=== PATIENT | male | born 1985 | race American Indian/Alaskan Native ===

== ENCOUNTER 2022-03-07 15:06 | Emergency (ER) | payer SELFPAY ==
[2022-03-07] MEDS ORDERED: IBUPROFEN 800 MG TAB PO ONE (19:03)
[2022-03-07] MEDS ORDERED: HYDROcodone/ACETAMINOPHEN 5-325 MG TAB PO ONE (19:03)
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
--- NOTE | 2022-03-07 21:45 | XRay Report ---
RIGHT HIP 1 VIEW(S) INDICATION / CLINICAL INFORMATION: pain hip pain COMPARISON: None available. FINDINGS: BONES / JOINT(S): No acute displaced fracture or subluxation. No significant arthritis. SOFT TISSUES: No significant abnormality. ADDITIONAL FINDINGS: None. Signer Name: Solomon Olvera MD Signed: 03/07/2022 9:41 PM Workstation Name: [id number]
--- NOTE | 2022-03-07 21:47 | XRay Report ---
X-RAY SPINE LUMBOSACRAL 3 VIEWS INDICATION: Low back pain COMPARISON: None FINDINGS: Vertebral body heights and alignment are preserved. There is mild endplate changes and disc space hei ght loss at L5-S1. There is mild retrolisthesis of L5 on S1. No acute fracture identified. CONCLUSION: 1. No acute abnormality. 2. Mild retrolisthesis of L5 on S1 with mild degenerative disc disease at this level. Signer Name: Solomon Olvera MD Signed: 03/07/2022 9:43 PM Workstation Name: [id number]
[2022-03-07 22:05] VITALS: BP 136/86
== END 2022-03-07 22:06 | disposition home or self-care (01) ==
LOC: ED 15:06
DX: M79.18 Myalgia, other site (principal); M54.50 Low back pain, unspecified; M54.2 Cervicalgia; V87.7XXA Person injured in collision between other specified motor vehicles (traffic), initial encounter; Y93.89 Activity, other specified; Y92.488 Other paved roadways as the place of occurrence of the external cause; Y99.8 Other external cause status
CPT/HCPCS: 72100; 99283